=== PATIENT | female | born 1995 ===

== ENCOUNTER 2017-10-24 00:30 | Emergency (ER) | payer OTHER ==
--- NOTE | 2017-10-24 02:04 | ED PDOC ---
HPI: Abdomen Time Seen by Provider: 10/24/17 02:02 Chief Complaint (Nursing): Abdominal Pain Chief Complaint (Provider): rlq abd pain History Per: Patient (22 y/o female here with intermittent right lower quadrant tenderness x few months. Notes reoccurrence of pain today at 9pm rlq pain. Last has had abdominal pain 1 week ago. Denies any N/V/D/fevers. No prior abdominal surgeries.) Past Medical History Reviewed: Historical Data, Nursing Documentation, Vital Signs Vital Signs: Last Vital Signs Temp 98.4 F 10/24/17 01:02 Pulse 77 10/24/17 01:02 Resp 18 10/24/17 01:02 BP 141/80 10/24/17 01:02 Pulse Ox 100 10/24/17 04:16 - Family History Family History: States: No Known Family Hx - Home Medications Home Medications: Ambulatory Orders Medication Instructions Recorded Naproxen 1 tab PO Q12 PRN #14 tab 10/24/17 - Allergies Allergies/Adverse Reactions: Allergies Allergy/AdvReac Type Severity Reaction Status Date / Time No Known Allergies Allergy Verified 10/24/17 01:02 Review of Systems ROS Statement: Except As Marked, All Systems Reviewed And Found Negative Physical Exam - Reviewed Nursing Documentation Reviewed: Yes Vital Signs Reviewed: Yes - Physical Exam Appears: Positive for: Well, Non-toxic, No Acute Distress Head Exam: Positive for: ATRAUMATIC, NORMAL INSPECTION, NORMOCEPHALIC Skin: Positive for: Normal Color, Warm, DRY Eye Exam: Positive for: EOMI, Normal appearance, PERRL ENT: Positive for: Normal ENT Inspection Neck: Positive for: Normal, Painless ROM Cardiovascular/Chest: Positive for: Regular Rate, Rhythm Respiratory: Positive for: CNT, Normal Breath Sounds Gastrointestinal/Abdominal: Positive for: Normal Exam, Bowel Sounds, Soft, Tenderness (rlq tenderness) Back: Positive for: Normal Inspection Extremity: Positive for: Normal ROM Neurologic/Psych: Positive for: Alert, Oriented - Laboratory Results Result Diagrams: 10/24/17 03:04 10/24/17 03:04 Urine POC: Negative - ECG O2 Sat by Pulse Oximetry: 100 - Progress ED Course And Treament: pelvic US: FINDINGS: Uterus/cervix: The uterus is normal in size, shape and echotexture measuring 4.8 x 2.6 x 4.1 cm. The endometrial stripe is normal in thickness measuring 4 mm. No myometrial mass. Right ovary: The right ovary is unremarkable in appearance measuring 2.0 x 0.8 x 1.8 cm. There is Doppler flow present. No adnexal masses. Left ovary: The left ovary is unremarkable in appearance measuring 1.4 x 1.0 x 1.7 cm. There is Doppler flow present. No adnexal masses. Free fluid: There is no evidence of free fluid. IMPRESSION: Unremarkable examination. No acute abnormalities are identified. Thank you for allowing us to participate in the care of your patient. Dictated and Authenticated by: Cody Brooke MD TORADOL 15 MG IV X 1 DOSE RE-EVALUATED 05:17AM. NONTENDER ABDOMEN. DENIES ANY NEW SEXUAL CONTACT/H/O STD. DENIES ANY DYSURIA. WILL FOLLOW WITH URINE AND GC CX . ADVISED F/U WITH S[facility] Disposition - Clinical Impression Clinical Impression: Abdominal pain in female - Patient ED Disposition Is Patient to be Admitted: No - Disposition [facility] Disposition: Routine/Home Disposition Time: 05:18 Condition: FAIR Prescriptions: Naproxen 1 tab PO Q12 PRN #14 tab PRN Reason: Pain, Moderate (4-7) Instructions: Pelvic Pain in Women (ED) Forms: [employer] (Liberian) Print Language: FAROESE
[2017-10-24 03:04] LABS: RBC URINE 6 /hpf (0-3); URINE BACTERIA RARE (<OCC); URINE BILIRUBIN NEGATIVE (NEGATIVE); URINE BLOOD SMALL (NEGATIVE); URINE COLOR STRAW (YELLOW); URINE GLUCOSE (UA) 150 mg/dL (Normal); URINE KETONE NEGATIVE (NEGATIVE); URINE LEUKOCYTE ESTERASE SMALL Leu/uL (Negative); URINE PROTEIN NEGATIVE (NEGATIVE); URINE UROBILINOGEN 0.2-1.0 mg/dL (0.2-1.0); WBC URINE 8 /hpf (0-5)
[2017-10-24 03:10] LABS: BASO # 0.1 K/uL (0.0-0.2); BASO % 0.9 % (0.0-2.0); EOS # 0.2 K/uL (0.0-0.7); EOS % 2.2 % (0.0-4.0); HEMATOCRIT 40.5 % (34.0-47.0); LYMPH # 2.9 K/uL (1.0-4.3); LYMPH % 29.7 % (20.0-40.0); MEAN CELL VOLUME 88.3 fl (81.0-99.0); MEAN CORPUSCULAR HEMOGLOBIN 29.9 pg (27.0-31.0); MEAN CORPUSCULAR HGB CONC 33.9 g/dL (33.0-37.0); MEAN PLATELET VOLUME 9.1 fl (7.2-11.7); MONO # 0.8 K/uL (0.0-0.8); MONO % 8.2 % (0.0-10.0); NEUT # 5.8 K/uL (1.8-7.0); NRBC % 0.1 % (0.0-0.0); RED CELL DISTRIBUTION WIDTH 13.6 % (11.5-14.5); WHITE BLOOD COUNT 9.8 K/uL (4.8-10.8)
[2017-10-24 03:16] LABS: ALB/GLOB RATIO 1.3 (1.0-2.1); ALKALINE PHOSPHATASE 79 U/L (38-126); ALT/SGPT 113 U/L (9-52); AST/SGOT 77 U/L (14-36); BILIRUBIN,TOTAL 0.4 mg/dl (0.2-1.3); BLOOD UREA NITROGEN 16 mg/dl (7-17); CALCIUM 9.3 mg/dL (8.4-10.2); CARBON DIOXIDE 21 mmol/L (22-30); CHLORIDE 109 mmol/L (98-107); GFR AFRICAN-AMERICAN > 60; GLUCOSE,RANDOM 101 mg/dL (65-105); POTASSIUM 4.1 MMOL/L (3.6-5.0); SODIUM 139 mmol/l (132-148); TOTAL PROTEIN 7.8 G/DL (6.3-8.2)
[2017-10-24 05:34] VITALS: BP 122/65; PULSE 79; RESP 16; TEMP 98.1; O2SAT 99
--- NOTE | 2017-10-24 17:37 | US ---
HISTORY: r/o ovarian cyst/ r/o ovarian torsion right COMPARISON: None available. TECHNIQUE: Transvaginal sonographic evaluation of the pelvis performed. FINDINGS: UTERUS: The uterus is anteverted measuring approximately 4.8 x 2.6 x 4.1 cm. Normal in size and appearance. No fibroid or other mass lesion seen. ENDOMETRIUM: Endometrial stripe measures approximately 4 mm in mm in diameter. Unremarkable. CERVIX: No cervical abnormality identified. RIGHT OVARY: Right ovary measures approximately 2.0 x 0.8 x 1.8 cm. No solid mass. Normal flow. LEFT OVARY: Left ovary measures approximately 1.4 x 1.0 x 1.7 cm. No solid mass. Normal flow. FREE FLUID: No significant free fluid noted. OTHER FINDINGS: None. IMPRESSION: Unremarkable pelvic ultrasound.
== END 2017-10-24 05:22 | disposition home or self-care (01) ==
LOC: H.ER 00:30
DX: B96.1 Klebsiella pneumoniae [K. pneumoniae] as the cause of diseases classified elsewhere (principal)
CPT/HCPCS: 76830; 80053; 81003; 81025; 85025; 87086; 87181; 87491; 87591; 96374; 99283; J1885

== ENCOUNTER 2017-11-02 14:42 | Emergency (ER) | payer OTHER ==
[2017-11-02 15:06] VITALS: BP 123/57; PULSE 62; RESP 16; TEMP 97.6; O2SAT 99
[2017-11-02] MEDS ORDERED: cefTRIAXone (Rocephin) 250 mg Inj IM ONE (15:13)
[2017-11-02] MEDS ORDERED: cefTRIAXone (Rocephin) 250 mg Inj ONE (15:40)
--- NOTE | 2017-11-02 15:56 | ED PDOC ---
HPI: General Adult Time Seen by Provider: 11/02/17 15:12 Chief Complaint (Nursing): Abnormal Labs History Per: Patient Additional Complaint(s): Pt. was informed today that she tested positive Chlamydia. Pt was seen in ED on 10/24/17. Offers no complaints at this time. Denies fever, pelvic pain, vaginal discharge. Past Medical History Reviewed: Historical Data, Nursing Documentation, Vital Signs Vital Signs: Last Vital Signs Temp 97.6 F 11/02/17 15:03 Pulse 62 11/02/17 15:03 Resp 16 11/02/17 15:03 BP 123/57 L 11/02/17 15:03 Pulse Ox 99 11/02/17 15:56 - Family History Family History: States: No Known Family Hx - Home Medications Home Medications: Ambulatory Orders Medication Instructions Recorded Naproxen 1 tab PO Q12 PRN #14 tab 10/24/17 Ciprofloxacin HCl [Cipro] 500 mg PO BID #6 tablet 10/27/17 - Allergies Allergies/Adverse Reactions: Allergies Allergy/AdvReac Type Severity Reaction Status Date / Time No Known Allergies Allergy Verified 11/02/17 15:03 Review of Systems ROS Statement: Except As Marked, All Systems Reviewed And Found Negative Physical Exam - Physical Exam Appears: Positive for: Well, Non-toxic, No Acute Distress Skin: Positive for: Normal Color, Warm. Negative for: Rash Eye Exam: Positive for: Normal appearance Gastrointestinal/Abdominal: Positive for: Normal Exam, Soft. Negative for: Tenderness Back: Positive for: Normal Inspection. Negative for: L CVA Tenderness, R CVA Tenderness Neurologic/Psych: Positive for: Alert, Oriented - ECG O2 Sat by Pulse Oximetry: 99 - Progress ED Course And Treament: Rocephin 250mg IM, zithromax 1000mg PO ordered. Pt. instructed to inform sexual partners of diagnosis. Disposition - Clinical Impression Clinical Impression: Chlamydia - Patient ED Disposition Is Patient to be Admitted: No - Disposition Referrals: [facility] [Outside] Disposition: Routine/Home Disposition Time: 15:30 Condition: STABLE Instructions: Chlamydia (ED) Forms: [employer] (Bermudian) Print Language: [place]
== END 2017-11-02 16:08 | disposition home or self-care (01) ==
LOC: H.ER 14:42
DX: A74.9 Chlamydial infection, unspecified (principal)
CPT/HCPCS: 96372; 99282; J0696